=== PATIENT | male | born 1995 | race Two or more races ===

== ENCOUNTER 2020-12-19 12:44 | Outpatient (CLI) | payer OTHER | END 2020-12-19 12:59 | disposition home or self-care (01) | LOC: LAB 12:44 | PROVIDERS: ATTEND Internal Medicine | DX: B34.8 Other viral infections of unspecified site (principal) ==

== ENCOUNTER 2021-02-02 13:45 | Outpatient (CLI) | payer OTHER | END 2021-02-02 14:00 | disposition home or self-care (01) | LOC: PPH VACUNA 13:45 | PROVIDERS: ATTEND Emergency Medicine Pediatric Emergency Medicine | DX: Z23 Encounter for immunization (principal) ==